=== PATIENT | male | born 1980 | race Caucasian/White ===

== ENCOUNTER 2018-05-07 07:36 | Emergency (ER) | payer BC, OTHER ==
[2018-05-07 07:59] VITALS: BP 135/75; PULSE 75; TEMP 98.7; BMI 45.3
--- NOTE | 2018-05-07 08:08 | PDOC ---
History of Present Illness - General Chief Complaint: Pain, Acute Stated Complaint: ABD /BACK PAIN Time Seen by Provider: 05/07/18 07:59 History Source: Patient Exam Limitations: No Limitations - History of Present Illness Initial Comments: CHIEF COMPLAINT: 37 y/o afebrile male with no significant PMH c/o upper abdominal pain that radiates around both sides to his back since last night. HISTORY OF PRESENT ILLNESS: The patient feels nauseous and did vomit this morning. He states he did have this pain one other time in the past but it resolved on its own. He describes the pain as sharp. He denies fever, chills, PISANO, cough, CP, SOB, hematuria, dysuria. Vital signs on arrival are within normal limits. REVIEW OF SYSTEMS: GENERAL/CONSTITUTIONAL: No fever/chills. No weakness. No weight change. HEAD, EYES, EARS, NOSE AND THROAT: No change in vision. No ear pain or discharge. No sore throat. CARDIOVASCULAR: No chest pain or shortness of breath. RESPIRATORY: No cough, wheezing, or hemoptysis. GASTROINTESTINAL: +sharp upper abdominal pain. +nausea and vomiting. No diarrhea or constipation. GENITOURINARY: No dysuria, frequency, or change in urination. MUSCULOSKELETAL: No joint or muscle swelling or pain. No neck or back pain. SKIN: No rash or easy bruising. NEUROLOGIC: No headache, vertigo, loss of consciousness, or loss of sensation. PHYSICAL EXAM: GENERAL: The patient is awake, alert, and fully oriented, in mild discomfort. HEAD: Normal with no signs of trauma. ENT: Pupils equal, round and reactive to light, extraocular movements intact, sclera anicteric, conjunctiva clear. Neck supple. LUNGS: Clear to auscultation bilaterally. Normal excursion. No respiratory distress or use of accessory muscles. CV: RRR, S1/S2, no MRG. Cap refill < 2 sec. ABDOMEN: Soft, non-distended, TTP of epigastric region with +Valencia's sign. No rebound, guarding, rigidity. EXTREMITIES: Normal range of motion, no edema. NEUROLOGICAL: Normal speech, normal gait. CN II-XII grossly intact. SKIN: Warm, dry, normal turgor, no rashes or lesions noted. Past History - Past Medical History Allergies/Adverse Reactions: Allergies Allergy/AdvReac Type Severity Reaction Status Date / Time Penicillins Allergy Unverified 05/07/18 07:57 Home Medications: Ambulatory Orders No Home Medications 0 dose .ROUTE UTDICT 07/06/12 Pantoprazole Sodium [Protonix -] 40 mg PO DAILY #7 tablet.ec 05/07/18 metroNIDAZOLE [Metronidazole] 500 mg PO TID #21 tablet 05/07/18 Asthma: Yes - Suicide/Smoking/Psychosocial Hx Smoking Status: No Smoking History: Never smoked Number of Cigarettes Smoked Daily: 0 ED Treatment Course - LABORATORY CBC & Chemistry Diagram: 05/07/18 08:36 05/07/18 08:36 Medical Decision Making - Medical Decision Making A/P: 37 y/o afebrile male with possible GERD vs gastritis vs cholecystitis. Plan is as follows: 1. labs 2. Gallbladder ultrasound 3. IV fluids 4. IV zofran 5. IV pepcid The patient feels better and passed a PO challenge. Gallbladder ultrasound IMPRESSION: Hepatomegaly with dense echotexture consistent with fatty infiltration versus hepatocellular disease. Please correlate with liver enzymes. Large nonmobile gallstone in the gallbladder neck measuring 2.3cm without sonographic evidence of acute cholecystitis. Spoke with Dr. Baird, general surgeon, and he suggests immediate outpatient follow up with short course of abx. Patient given instructions. Flagyl sent to pharmacy since he is PCN allergic. Suggested he follow a low fat diet until he can see Dr. Baird. Instructed him to return to the ER immediately with any worsening or concerning symptoms. Also informed him his potassium was slightly high, to avoid potassium rich foods and drink plenty of water. The patient verbalizes understanding of all instructions, has no further questions and is awaiting discharge. *DC/Admit/Observation/Transfer Diagnosis at time of Disposition: Epigastric pain Gallstone Qualifiers: Cholecystitis presence: without cholecystitis Biliary obstruction: with biliary obstruction Qualified Code(s): K80.21 - Calculus of gallbladder without cholecystitis with obstruction - Discharge Dispostion Disposition: HOME Condition at time of disposition: Improved - Prescriptions Prescriptions: metroNIDAZOLE [Metronidazole] 500 mg PO TID #21 tablet - Referrals Referrals: Raudel Baird MD [Staff Physician] - - Patient Instructions Printed Discharge Instructions: Fat-Restricted Diet, DI for Gallstones Additional Instructions: Discharge Instructions: -You have a gallstone in your common bile duct; this can become infected -Your potassium was slightly high today, so please aviod eating potassium rich foods -Drink at least 64oz of water daily -A prescription has been sent to your pharmacy; please take as prescribed -Please follow a low fat diet until you have a follow up appointment with Dr. Baird -Please follow up with Dr. Baird as soon as possible -Return to the ER immediately with any worsening or concerning symptoms - Post Discharge Activity Forms/Work/School Notes: Back to Work
[2018-05-07] MEDS ORDERED: FAMOTIDINE 20 MG/50 ML IVPB 20 MG/50 ML MG IVPB ONE ×2 (08:11→08:17)
[2018-05-07] MEDS ORDERED: ONDANSETRON 4 MG/2 ML VIAL IVPUSH ONE (08:11)
[2018-05-07] MEDS ORDERED: ONDANSETRON 4 MG/2 ML VIAL ONE (08:17)
[2018-05-07 08:48] LABS: BASO % 0.9 % (0-2.0); EOS % 1.2 % (0-4.5); HEMATOCRIT 42.6 % (35.4-49); HEMOGLOBIN 14.7 GM/dL (11.7-16.9); LYMPH % 14.6 % (8-40); MCH 30.5 pg (25.7-33.7); MCHC 34.6 g/dl (32.0-35.9); MEAN CELL VOLUME 88.1 fl (80-96); MEAN PLT VOLUME 8.3 fl (7.5-11.1); MONO % 6.1 % (3.8-10.2); NEUT % 77.2 % (42.8-82.8); PLATELET COUNT 420 K/MM3 (134-434); RBC 4.84 M/mm3 (4.00-5.60); WHITE BLOOD COUNT 9.6 K/mm3 (4.0-10.0)
[2018-05-07] MEDS ORDERED: SODIUM CHLORIDE 1,000 ML IV STA ×2 (08:48→09:48)
[2018-05-07 09:30] LABS: ALBUMIN 3.4 g/dl (3.4-5.0); ANION GAP 6 (8-16); BILIRUBIN,TOTAL 0.5 mg/dL (0.2-1.0); BLOOD UREA NITROGEN 17 mg/dL (7-18); CALCIUM 8.5 mg/dL (8.5-10.1); CHLORIDE 104 mmol/L (98-107); CO2 27 mmol/L (21-32); CREATININE 0.9 mg/dL (0.7-1.3); GLUCOSE,RANDOM 109 mg/dL (74-106); LIPASE 78 U/L (73-393); SGPT/ALT 43 U/L (12-78); SODIUM 137 mmol/L (136-145)
[2018-05-07 09:33] LABS: ALK PHOS 73 U/L (45-117); TOT PROT 7.9 g/dl (6.4-8.2)
[2018-05-07 09:34] LABS: POTASSIUM 5.4 mmol/L (3.5-5.1)
[2018-05-07 09:35] LABS: SGOT/AST 43 U/L (15-37)
== END 2018-05-07 13:20 | disposition home or self-care (01) ==
LOC: JER 07:36
PROC: 3E033GC Introduction of Other Therapeutic Substance into Peripheral Vein, Percutaneous Approach (ICD-10-PCS; principal; 2018-05-07)
PROC: 3E0337Z Introduction of Electrolytic and Water Balance Substance into Peripheral Vein, Percutaneous Approach (ICD-10-PCS; 2018-05-07)
DX: R10.13 Epigastric pain (principal); K80.21 Calculus of gallbladder without cholecystitis with obstruction
CPT/HCPCS: 36415; 76705-TC; 80053; 82550; 82553; 83690; 84484; 85025; 99283-25; J7030

== ENCOUNTER 2019-09-01 07:47 | Emergency (ER) | payer OTHER ==
[2019-09-01 08:03] VITALS: BP 135/79; PULSE 67; TEMP 98.3; BMI 41.8
[2019-09-01] MEDS ORDERED: ONDANSETRON *ODT* 4 MG TABLET SL ONE (08:24)
[2019-09-01] MEDS ORDERED: morphine CARPU-JECT 2 MG/1 ML DISP.SYRIN IM ONE (08:24)
--- NOTE | 2019-09-01 08:24 | PDOC ---
*Physical Exam - Vital Signs Last Vital Signs Temp Pulse Resp BP Pulse Ox 98.3 F 67 18 135/79 94 L 09/01/19 08:01 09/01/19 08:01 09/01/19 08:01 09/01/19 08:01 09/01/19 08:01 ED Treatment Course - LABORATORY CBC & Chemistry Diagram: 09/01/19 08:30 09/01/19 08:30 Medical Decision Making - Medical Decision Making 09/01/19 08:23 Patient seen and evaluated with the nurse practitioner. I agree with the overall evaluation, assessment, and management with the following summary of visit: 38-year-old male with history of cholelithiasis presents now with epigastric pain/nausea/vomiting with focal tenderness in the epigastric and right upper quadrant region, concerning for recurrent bout of biliary colic, rule out cholecystitis. Rule out pancreatitis. Possible dyspepsia/gastritis. Labs Right upper quadrant ultrasound IV fluids and pain control and nausea control VSS 09/01/19 10:53 labs wnl, u/s with known stone but no evidence of obstruction or infection. tolerating PO with resolved sxs, wants outpt f/u, will refer to gen surg Discharge - Discharge Information Problems reviewed: Yes Clinical Impression/Diagnosis: Epigastric pain Gallstone Qualifiers: Cholecystitis presence: without cholecystitis Biliary obstruction: without biliary obstruction Qualified Code(s): K80.20 - Calculus of gallbladder without cholecystitis without obstruction Condition: Stable Disposition: HOME - Additional Discharge Information Prescriptions: Mag Hydrox/Aluminum Hyd/Simeth [Maalox Advanced Suspension] 30 ml PO Q8H PRN # 200 ml PRN Reason: abdominal discomfort Pantoprazole Sodium [Protonix -] 40 mg PO DAILY #7 tablet.ec - Follow up/Referral Referrals: Nicanor Bucio MD [Staff Physician] - Garcia Jeffers MD [Staff Physician] - - Patient Discharge Instructions Patient Printed Discharge Instructions: DI for Gallstones Additional Instructions: Your blood work came back normal. Your abdominal ultrasound shows 3 cm gallstone which is not obstructing the gallbladder and there is no indication of gallbladder infection. Ultrasound also shows enlarged liver. Take prescribed medication as needed for abdominal discomfort. Follow-up referred to GI doctor as soon as possible for management of gallstone and mildly enlarged liver. - Post Discharge Activity Work/Back to School Note: Back to Work
--- NOTE | 2019-09-01 08:46 | PDOC ---
History of Present Illness - General Chief Complaint: Pain Stated Complaint: ABD PAIN Time Seen by Provider: 09/01/19 08:14 History Source: Patient Exam Limitations: Clinical Condition - History of Present Illness Initial Comments: 09/01/19 08:42 Patient with past medical history of GERD and gallstones presented with complaint of sudden onset of epigastric pain with one episode of blood-tinged vomit upon with this morning. Patient reports that they have been burning in the epigastric region and chest yesterday for massive reflux. Denies chest pain , shortness of breath, palpitation, dizziness, diarrhea or constipation. Denies fever, chills or weakness. Patient did not take anything for symptoms Is this a multiple visit Asthma Patient?: No Timing/Duration: 4-6 hours Past History - Past Medical History Allergies/Adverse Reactions: Allergies Allergy/AdvReac Type Severity Reaction Status Date / Time Penicillins Allergy Unverified 09/01/19 08:01 Home Medications: Ambulatory Orders No Home Medications 0 dose .ROUTE UTDICT 07/06/12 metroNIDAZOLE [Metronidazole] 500 mg PO TID #21 tablet 05/07/18 Mag Hydrox/Aluminum Hyd/Simeth [Maalox Advanced Suspension] 30 ml PO Q8H PRN # 200 ml 09/01/19 Pantoprazole Sodium [Protonix -] 40 mg PO DAILY #7 tablet.ec 09/01/19 Asthma: Yes COPD: No GI Disorders: Yes (gallstones) - Psycho Social/Smoking Cessation Hx Smoking Status: No Smoking History: Former smoker Have you smoked in the past 12 months: No Number of Cigarettes Smoked Daily: 0 Information on smoking cessation initiated: No Hx Alcohol Use: No Drug/Substance Use Hx: No Substance Use Type: None Review of Systems - Review of Systems Able to Perform ROS?: Yes Is the patient limited Romansh proficient: No Constitutional: No: Chills, Fever, Malaise HEENTM: No: Symptoms Reported Respiratory: No: Symptoms reported, Cough, SOB at Rest Cardiac (ROS): No: Symptoms Reported, See HPI, Chest Pain, Edema, Irregular Heart Rate, Lightheadedness, Palpitations, Syncope, Chest Tightness, Other ABD/GI: Yes: Symptoms Reported, See HPI, Nausea, Vomiting (blood streaked vomit) , Abdominal cramping (epigastric pain). No: Abdominal Distended, Abd. Pain w/ defecation, Blood Streaked Bowels, Constipated, Diarrhea, Difficulty Swallowing , Poor Fluid Intake, Rectal Bleeding, Tarry Stools : No: Burning, Dysuria, Discharge, Frequency, Pain, Urgency, Testicular Mass, Testicular Swelling, Lesions, Testicular Pain Musculoskeletal: No: Symptoms Reported, Back Pain All Other Systems: Reviewed and Negative *Physical Exam - Vital Signs Last Vital Signs Temp Pulse Resp BP Pulse Ox 98.3 F 67 18 135/79 94 L 09/01/19 08:01 09/01/19 08:01 09/01/19 08:01 09/01/19 08:01 09/01/19 08:01 - Physical Exam Comments: 09/01/19 08:41 GENERAL: Well developed, well nourished. Awake and alert in mild acute distress. HEENT: Normocephalic, atraumatic. PERRLA, EOMI. No conjunctival pallor. Sclera are non-icteric. Moist mucous membranes. Oropharynx is clear. NECK: Supple. Full ROM. CARDIOVASCULAR: Regular rate and rhythm. No murmurs, rubs, or gallops. Distal pulses are 2+ and symmetric. PULMONARY: No evidence of respiratory distress. Lungs clear to auscultation bilaterally. No wheezing, rales or rhonchi. ABDOMINAL: Soft. Moderate epigastric and right upper quadrant tenderness. Non-distended. No rebound or guarding. No organomegaly. Normoactive bowel sounds. MUSCULOSKELETAL Normal range of motion at all joints. SKIN: Warm and dry. Normal capillary refill. . NEUROLOGICAL: Alert, awake, appropriate. Gait is normal without ataxia. PSYCHIATRIC: Cooperative. Good eye contact. Appropriate mood General Appearance: Yes: Nourished, Appropriately Dressed, Mild Distress ED Treatment Course - LABORATORY CBC & Chemistry Diagram: 09/01/19 08:30 09/01/19 08:30 - RADIOLOGY Radiology Studies Ordered: Category Date Time Status ABDOMEN US [US] Stat Ultrasound 09/01/19 08:18 Ordered Medical Decision Making - Medical Decision Making 09/01/19 08:44 Patient with past medical history of GERD and gallstones presented with complaint of sudden onset of epigastric pain with one episode of blood-tinged vomit upon with this morning. Patient reports that they have been burning in the epigastric region and chest yesterday for massive reflux. Denies chest pain , shortness of breath, palpitation, dizziness, diarrhea or constipation. Denies fever, chills or weakness. Patient did not take anything for symptoms. Denies history of ulcerative colitis or Crohn's disease. Exam significant for moderate tenderness to epigastric and right upper quadrant region without guarding or rebound. Negative Rovsing sign. negative obturator sign. No palpable mass. Symptoms likely gastritis versus cholelithiasis versus cholecystitis. CBC, CMP and lipase lab ordered. PT/ PTT lab order for evaluate for coagulopathy causing blood-tinged sputum. Abdominal ultrasound ordered to rule out cholecystitis. Morphine 4 mg IM ordered for pain and Zofran 4 mg sublingual for nausea. Treat based on lab and imaging results 09/01/19 09:28 CBC, CMP and lipase labs with no acute abnormality. Patient given Zofran 4 mg sublingual. 4 mg IM morphine for pain and Maalox 30 mL p.o. Patient able to tolerate p.o. without vomiting. Patient pending ultrasound reading. 09/01/19 10:29 abdominal ultrasound shows 3 cm gallstone which is non-obstructing the gallbladder and there is no indication of gallbladder infection. Ultrasound also shows enlarged liver. Results discussed with patient patient be referred for GI follow-up. Rx for Protonix and Maalox for abdominal discomfort. Patient stable for discharge Discharge - Discharge Information Problems reviewed: Yes Clinical Impression/Diagnosis: Epigastric pain Gallstone Qualifiers: Cholecystitis presence: without cholecystitis Biliary obstruction: without biliary obstruction Qualified Code(s): K80.20 - Calculus of gallbladder without cholecystitis without obstruction Condition: Stable Disposition: HOME - Admission No - Additional Discharge Information Prescriptions: Mag Hydrox/Aluminum Hyd/Simeth [Maalox Advanced Suspension] 30 ml PO Q8H PRN # 200 ml PRN Reason: abdominal discomfort Pantoprazole Sodium [Protonix -] 40 mg PO DAILY #7 tablet.ec - Follow up/Referral Referrals: Garcia Jeffers MD [Staff Physician] - - Patient Discharge Instructions Patient Printed Discharge Instructions: DI for Gallstones Additional Instructions: Your blood work came back normal. Your abdominal ultrasound shows 3 cm gallstone which is not obstructing the gallbladder and there is no indication of gallbladder infection. Ultrasound also shows enlarged liver. Take prescribed medication as needed for abdominal discomfort. Follow-up referred to GI doctor as soon as possible for management of gallstone and mildly enlarged liver. - Post Discharge Activity
[2019-09-01] MEDS ORDERED: PANTOPRAZOLE 40 MG TABLET (FP) PO ONE (08:50)
[2019-09-01] MEDS ORDERED: MAG HYDROX/AL HYDROX/SIMETH 30 ML UNIT-DOSE CUP PO ONE (08:50)
[2019-09-01 08:55] LABS: BASO % 0.7 % (0-2.0); HEMATOCRIT 44.5 % (35.4-49); HEMOGLOBIN 15.2 GM/dL (11.7-16.9); LYMPH % 21.2 % (8-40); MCH 30.3 pg (25.7-33.7); MCHC 34.1 g/dl (32.0-35.9); MEAN CELL VOLUME 88.8 fl (80-96); MEAN PLT VOLUME 7.9 fl (7.5-11.1); MONO % 6.9 % (3.8-10.2); NEUT % 70.2 % (42.8-82.8); PLATELET COUNT 485 K/MM3 (134-434); RBC 5.01 M/mm3 (4.00-5.60); RDW 13.4 % (11.9-15.9); WHITE BLOOD COUNT 10.2 K/mm3 (4.0-10.0)
[2019-09-01 09:04] LABS: INR 1.08 (0.83-1.09); PROTHROMBIN TIME (PATIENT) 12.8 SEC (9.7-13.0)
[2019-09-01] MEDS ORDERED: ONDANSETRON *ODT* 4 MG TABLET ONE (09:04)
[2019-09-01 09:06] LABS: ACTIVATED PTT 37.3 SECONDS (25.2-36.5)
[2019-09-01 09:19] LABS: ALBUMIN 3.6 g/dl (3.4-5.0); BILIRUBIN,TOTAL 0.3 mg/dL (0.2-1); BLOOD UREA NITROGEN 15.7 mg/dL (7-18); CALCIUM 8.8 mg/dL (8.5-10.1); POTASSIUM 4.4 mmol/L (3.5-5.1); TOT PROT 8.2 g/dl (6.4-8.2)
[2019-09-01] MEDS ORDERED: MORPHINE SULFATE 2 MG/ML VIAL ONE (09:21)
[2019-09-01] MEDS ORDERED: MAG HYDROX/AL HYDROX/SIMETH 30 ML UNIT-DOSE CUP ONE (09:21)
== END 2019-09-01 11:15 | disposition home or self-care (01) ==
LOC: JER 07:47
PROC: 3E023NZ Introduction of Analgesics, Hypnotics, Sedatives into Muscle, Percutaneous Approach (ICD-10-PCS; principal; 2019-09-01)
DX: K80.20 Calculus of gallbladder without cholecystitis without obstruction (principal); K21.9 Gastro-esophageal reflux disease without esophagitis; Z88.0 Allergy status to penicillin; R11.2 Nausea with vomiting, unspecified
CPT/HCPCS: 36415; 76700-TC; 80053; 83690; 85025; 85610; 85730; 99282-25; Q0162